=== PATIENT | female | born 1940 | race Caucasian/White ===

== ENCOUNTER 2018-11-01 23:22 | Emergency (ER) | payer MEDICARE, OTHER ==
[~2018-11-01] VITALS: Ht 170.2 cm; Wt 51.3 kg
[~2018-11-01 23:22] MED LIST: LISINOPRIL; LISINOPRIL10 MG PO
[2018-11-02] MEDS ORDERED: PANTOPRAZOLE 40 MG 10ML VIAL IV STA (00:32)
--- NOTE | 2018-11-02 01:55 | Diagnostic Imaging Report ---
EXAMINATION: CXR 1 VIEW - HOPD COMPARISON: None INDICATION: Reflux and upper back pain DISCUSSION: Frontal view of the chest obtained at 0004 hours. HEART AND MEDIASTINUM: The cardiomediastinal silhouette is unremarkable. LINES: None. LUNGS: The lungs are well inflated and clear. No pneumonia or pulmonary edema. PLEURA: No pleural effusion or pneumothorax. BONES AND SOFT TISSUES: Mild degenerative changes of the spine. No focal osseous lesion. The soft tissues are normal. IMPRESSION: No acute cardiopulmonary disease. Signed by: Dr. Nohemy Finley MD on 11/02/2018 12:35 AM
[2018-11-02 03:46] VITALS: BP 140/81
[2018-11-02] MEDS ORDERED: MULTI-VITAMIN1 EACH (03:46)
[2018-11-02] MEDS ORDERED: PRAVASTATIN SOD40 MG (03:46)
[2018-11-02] MEDS ORDERED: OMEPRAZOLE40 MG (03:46)
[2018-11-02] MEDS ORDERED: ECOTRIN81 MG PO (03:46)
[2018-11-02] MEDS ORDERED: FAMOTIDINE20 MG PO (03:46)
[2018-11-02] MEDS ORDERED: METOPROLOL TART25 MG PO (03:46)
== END 2018-11-02 01:30 | disposition home or self-care (01) ==
LOC: FSED 23:22
DX: R07.89 Other chest pain (principal); K21.0 Gastro-esophageal reflux disease with esophagitis; I10 Essential (primary) hypertension; E78.5 Hyperlipidemia, unspecified
CPT/HCPCS: 71045; 80053; 80076; 82553; 83880; 84484; 85025; 93005; 96374; 99283

== ENCOUNTER 2020-04-29 07:19 | Emergency (ER) | payer MEDICARE, OTHER ==
[~2020-04-29] VITALS: Ht 170.2 cm; Wt 58.1 kg
[~2020-04-29 07:19] MED LIST changes: +ECOTRIN81 MG PO; +FAMOTIDINE20 MG PO; +METOPROLOL TART25 MG PO; +MULTI-VITAMIN1 EACH; +OMEPRAZOLE40 MG; +PRAVASTATIN SOD40 MG
--- OUTSIDE RECORDS SUMMARY | 2020-04-29 08:15 | XMS REPORT | Continuity of Care Document ---
Author Author [facility] t Organization [facility] Address [address] [place] [address] Phone Unavailable Care Team Providers Care Director Of Online Education Name Role Phone NONSTAFF PCP Unavailable Mario ROYAL Attphys Unavailable Payers Payer Name Policy Type Policy Number Effective Date Expiration Date Abner Redd o [id number] 2016 00:00:[address] [facility] [employer] Medicare Advantage [id number] [facility] Ppo [id number] [facility] Problems This patient has no known problems. Allergies, Adverse Reactions, Alerts Allergy Name Allergy Type Status Severity Reaction(s) Onset Date Inacti ve Date Treating Clinician Comments Source penicillin Allergy to Substance Active Moderate Blisters around mouth 2016-11-02 00:00:00 [facility] Medications Ordered Medication Name Filled Medication Name Start Date Stop Da te Current Medication? Ordering Clinician Indication Dosage Frequency Signature (SIG) Comments Components Source Aspirin (Ecotrin) 81 Mg Tablet. Aspirin (Ecotrin) 81 Mg Tablet. Yes Daily [facility] Famotidine 20 Mg Tab Famotidine 20 Mg Tab Yes 20 Prn [facility] Metoprolol Tartrate 25 Mg Tablet Metoprolol Tartrate 25 Mg Tablet Yes 25 Twice A Day for Htn [facility] Multivitamin (Multi-Vitamin Daily) 1 Each Tablet Multi vitamin (Multi-Vitamin Daily) 1 Each Tablet Yes Daily [facility] Omeprazole 40 Mg Capsule. Omeprazole 40 Mg Capsule. Yes Daily [facility] Pravastatin Sodium 40 Mg Tablet Pravastatin Sodium 40 Mg Tablet Yes Daily [facility] Lisinopril 10 Mg Tablet, 10 Mg Oral Lisinopril 10 Mg Tablet, 10 Mg Oral 2018-11-02 00:00:00 No 10 Daily [facility] Lisinopril , Lisinopril , 2016-11-02 00:00:00 No [facility] Procedures This patient has no known procedures. Encounters Start Date/Time End Date/Time [facility] Source 2018-11-01 23:22:00 2018-11-02 01:30:00 Departed Emergency Room 1 LALA ROYAL [facility] [id number] [facility] Results Test Description Test Time Test Comments Results Result Comments Source CXR 1 [facility] 2018-11-02 00:34:00 [place] [address] Patient Name: AUDREY LANGE MR #: [id number] : 1940 Age/Sex: 77/F Req #: [id number] Adm Physician: Ordered by: LALA ROYAL MD Report #: [id number] Location: [facility] Room/Bed: Procedure: [id number] HOPD/CXR 1 - [facility] Exam Date: 11/01/18 Exam Time: 2349 REPORT STATUS: Signed EXAMINATION: CXR 1 [facility] COMPARISON: None INDICATION: Reflux and upper back pain DISCUSSION: Frontal view of the chest obtained at 0004 hours. HEART AND MEDIASTINUM: The cardiomediastinal silhouette is unremarkable. LINES: None. LUNGS: The lungs are well inflated and clear. No pneumonia or pulmonary edema. PLEURA: No pleural effusion or pneumothorax. BONES AND SOFT TISSUES: Mild degenerative changes of the spine. No focal osseous lesion. The soft tissues are normal. IMPRESSION: No acute cardiopulmonary disease. Signed by: Dr. Sarah Finley MD on 11/02/2018 12:35 AM Dictated By: SARAH FINLEY MD Transcribed By: ELODIA on 11/02/1834 COPY TO: LALA ROYAL MD
[2020-04-29] MEDS ORDERED: NITROFURANTOIN100 MG PO (08:24)
--- NOTE | 2020-04-29 08:55 | Emergency Department Note ---
History of Present Illnes History of Present Illness Chief Complaint: Genitourinary History of Present Illness This is a 79 year old female who presents with 4 days of bladder di scomfort, which she states is typical for previous UTIs. She denies any dysuria, however states that she feels a pressure in her bladder. She states his pressure is temporarily relieved with urination for about 20 minutes, but then returns. She has a history of kidney stones, however says this does not feel like a kidney stone. She denies any hematuria. She denies any vaginal discharge. Similar symptoms in the past resolved with antibiotics for UTI. She denies any diarrhea, however since states that her bowel movement yesterday was soft. She denies any fever or chills. She denies any abdominal pain other than the symptoms above. She has had no nausea or vomiting. She denies any history of urinary retention. She denies any recent ogqm-cwl-[id number] medications. She denies any recent changes to her prescription medications. 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 Any updates have been documented here. Past Medical History Recent Fever: No Clinical Suspicion of Infectio: No New/Unexplained Change in Ment: No Past Medical History: Hypertension, GERD, Hyperlipedemia Other Medical History: Pneumonia Past Surgical History: Cholecysctectomy, T&A, Tubal Ligation, Hip Replacement Other Surgery: POLYP REMOVED ON LARGE BOWEL Rt hip fx Social History Smoking Cessation: Never Smoker Alcohol Use: None Any Illegal Drug Use: No Physically hurt or threatened: No Other Last Tetanus: >5yrs Any Pre-Existing Lines (PICC,: No Review of Systems Review of Systems Constitutional: Denies chills, Denies fever Cardiovascular: Denies chest pain Respiratory: Denies cough, Denies dyspnea Gastrointestinal: Reports as per HPI Genitourinary: Reports as per HPI Musculoskeletal: Reports no symptoms Integumentary: Denies rash Neurological: Reports no symptoms Psychological: Reports no symptoms Endocrine: Denies increased thirst, Denies increased urination Hematological/Lymphatic: Denies easy bleeding, Denies easy bruising Physical Exam Related Data Allergies: Coded Allergies: penicillin (Verified Allergy, Intermediate, Blisters around mouth, 11/02/16) Triage Vital Signs Vital Signs Date Time Temp Pulse Resp B/P (MAP) Pulse Ox O2 Delivery O2 Flow Rate FiO2 04/29/20 07:20 98.3 72 18 147/75 100 Room Air Physical Exam CONSTITUTIONAL Constitutional: Present well-developed, Present well-nourished HENT HENT: Present normocephalic, Present atraumatic, Present oropharynx clear/moist, Present nose normal HENT L/R: Present left ext ear normal, Present right ext ear normal EYES Eyes: Reports PERRL, Reports conjunctivae normal NECK Neck: Present ROM normal PULMONARY Pulmonary: Present effort normal, Present breath sounds normal CARDIOVASCULAR Cardiovascular: Present regular rhythm, Present heart sounds normal, Present c apillary refill normal, Present normal rate GASTROINTESTINAL Abdominal: Present soft, Present nontender, Present bowel sounds normal GENITOURINARY SKIN Skin: Present warm, Present dry MUSCULOSKELETAL NEUROLOGICAL Neurological: Present alert, Present oriented x 3, Present no gross motor or sensory deficits PSYCHOLOGICAL Psychological: Present mood/affect normal, Present judgement normal Results Laboratory Laboratory comments UA WNL Procedures FAST Exam Additional comments Bedside ultrasound limited to bladder performed by me. Post-void bladder measured 3.19 X 5.03 X 3.42 cm. Using coefficient of 0.66 for Prizm shaped bladder, the post void residual was calculated at 36.21 mL. Findings: normal post-void residual volume. Assessment & Plan Medical Decision Making MDM Patient's has symptoms typical for her prior UTIs. Since she denies any dysuria, concerned that her bladder fullness could be due to urinary retention. Her post void residual volume was normal in the ED as measured by ultrasound. Although the patient has a history of kidney stones, I do not suspect a kidney stone due to minimal symptoms, no hematuria, no flank pain, and the fact that the patient states this feels more like her typical UTI and not a kidney stone. Given the fact that the symptoms are typical for previous UTIs, we'll treat with antibiotics despite a negative UA. Patient was given strict return precautions with a lengthy discussion of kidney stone and urinary retention symptoms. I reviewed with the patient's medications that can cause urinary retention. She is to follow up promptly with her primary care doctor for a repeat UA, and her urologist. Assessment & Plan Final Impression: (1) UTI (urinary tract infection) Depart Disposition: HOME, SELF-CARE Last Vital Signs Date Time Temp Pulse Resp B/P (MAP) Pulse Ox O2 Delivery O2 Flow Rate FiO2 04/29/20 07:20 98.3 72 18 147/75 100 Room Air Home Meds Active Scripts Nitrofurantoin Macrocrystal (NITROFURANTOIN) 100 Mg Capsule, 1 TAB PO BID for 7 Days, #14 Prov:KATHY SETHI MD 04/29/20 Reported Medications Famotidine (FAMOTIDINE) 20 Mg Tab, 20 MG PO prn, #30 TAB 11/02/18 Multivitamin (MULTI-VITAMIN DAILY) 1 Each Tablet, DAILY 11/02/18 Omeprazole (OMEPRAZOLE) 40 Mg Capsule.dr, DAILY 11/02/18 Pravastatin Sodium (PRAVASTATIN SODIUM) 40 Mg Tablet, DAILY 11/02/18 Aspirin (ECOTRIN) 81 Mg Tablet.dr, PO DAILY 11/02/18 Metoprolol Tartrate (METOPROLOL TARTRATE) 25 Mg Tablet, 25 MG PO BID for htn, TAB 11/02/18 KATHY SETHI MD Apr 29, 2020 08:55
== END 2020-04-29 08:33 | disposition home or self-care (01) ==
LOC: FSED 07:44
DX: N39.0 Urinary tract infection, site not specified (principal); I10 Essential (primary) hypertension; E78.5 Hyperlipidemia, unspecified; K21.9 Gastro-esophageal reflux disease without esophagitis
CPT/HCPCS: 81003; 99283